=== PATIENT | female | born 1965 | race Caucasian/White ===

== ENCOUNTER 2018-09-20 08:28 | Day surgery (SDC) | payer BC ==
[2018-09-19 09:40] VITALS: BMI 25.0
[~2018-09-20 08:28] MED LIST: LACTATED RINGERS 1,000 ML IV SCH
[2018-09-20 09:22] VITALS: RESP 16; TEMP 97.6
[2018-09-20] MEDS ORDERED: LIDOCAINE 1% 20 ML VIAL (10MG/ML) FOR IV START INTRADERMA ONE (09:31)
[2018-09-20] MEDS ORDERED: PROPOFOL 10 MG/ML 20 ML VIAL IV ONE (09:52)
[2018-09-20] MEDS ORDERED: LIDOCAINE 1% INJ 10MG/ML (20 ML MDV) ONE (09:52)
--- NOTE | 2018-09-20 10:12 | P.PCN ---
Date of Procedure: 09/20/18 Procedure(s) Performed: BRIEF HISTORY: Patient is a 53-year-old pleasant female, scheduled for an elective colonoscopy as a part of screening for colon neoplasia. PROCEDURE PERFORMED: Colonoscopy. PREOPERATIVE DIAGNOSIS: Screening for colon cancer. IV sedation per Anesthesia. PROCEDURE: After informed consent was obtained, the patient, was brought into the endoscopy unit. IV sedation was administered by Anesthesia under continuous monitoring. Digital rectal examination was normal. Initially the Olympus CF-160 flexible video colonoscope was then inserted in the rectum, gradually advanced into the cecum without any difficulty. Careful examination was performed as the scope was gradually being withdrawn. Ileocecal valve and the appendiceal orifice were visualized and appeared normal. Prep was excellent. Mucosa of the cecum, ascending colon, transverse colon, descending colon, sigmoid colon, and rectum appeared normal. Retroflexion was performed in the rectum and no lesions were seen. The patient tolerated the procedure well. IMPRESSION: Normal-appearing colon from rectum to cecum with no evidence of colorectal neoplasia. RECOMMENDATIONS: Findings of this examination were discussed with the patient well as her family. She was advised to have a repeat screening colonoscopy in 10 years.
[2018-09-20 10:48] VITALS: BP 106/60; PULSE 62
== END 2018-09-20 10:50 | disposition home or self-care (01) ==
LOC: ORWHC2ENDO 08:28
PROVIDERS: ATTEND Internal Medicine Gastroenterology
DX: Z12.11 Encounter for screening for malignant neoplasm of colon (principal); F32.9 Major depressive disorder, single episode, unspecified; Z79.1 Long term (current) use of non-steroidal anti-inflammatories (NSAID); Z79.899 Other long term (current) drug therapy; Z88.0 Allergy status to penicillin
CPT/HCPCS: J2001; J2704; G0121

== ENCOUNTER → 2022-04-27 | Outpatient (CLI) | payer OTHER ==
--- NOTE | 2022-04-27 16:42 | XR ---
EXAMINATION TYPE: XR chest 2V DATE OF EXAM: 04/27/2022 4:33 PM COMPARISON: None TECHNIQUE: XR chest 2V Frontal and lateral views of the chest. CLINICAL INDICATION:Female, 56 years old with history of [id number] PRE SURG; FINDINGS: Lungs/Pleura: There is no evidence of pleural effusion, focal consolidation, or pneumothorax. Senesc ent parenchymal change. Pulmonary vascularity: Unremarkable. Heart/mediastinum: Cardiomediastinal silhouette is unremarkable. Musculoskeletal: Multiple level degenerative disc disease changes seen throughout the spine. IMPRESSION: No acute cardiopulmonary disease/process.
[2022-04-27 17:29] LABS: INR 0.9 (<1.2); Partial Thromboplastin Time 23.2 sec (22.0-30.0); Prothrombin Time 9.6 sec (9.0-12.0)
[2022-04-27 18:31] LABS: Basophils % (A) 1 %; Eosinophils # (A) 0.1 k/uL (0-0.7); Eosinophils % (A) 1 %; HCT 40.8 % (34.0-46.0); HGB 13.7 gm/dL (11.4-16.0); Lymphocytes # (A) 0.9 k/uL (1.0-4.8); Lymphocytes % (A) 15 %; MCH 30.7 pg (25.0-35.0); MCHC 33.7 g/dL (31.0-37.0); MCV 91.1 fL (80.0-100.0); Mean Platelet Volume 7.9; Monocytes # (A) 0.3 k/uL (0-1.0); Monocytes % (A) 4 %; Neutrophils # (A) 4.6 k/uL (1.3-7.7); Neutrophils % (A) 75 %; Platelet Count 318 k/uL (150-450); RBC 4.48 m/uL (3.80-5.40); RDW 12.2 % (11.5-15.5); WBC 6.1 k/uL (3.8-10.6)
[2022-04-27 19:12] LABS: Amorphous Sediment,Urine Few /hpf; Appearance,Urine Cloudy (Clear); Bilirubin,Urine Negative (Negative); Blood,Urine Large (Negative); Calcium Oxalate Crystals,Urine Occasional /hpf; Color,Urine Yellow; Glucose,Urine (UA) Negative (Negative); Ketones,Urine Trace (Negative); Leukocyte Esterase,Urine Trace (Negative); Mucus,Urine Few /hpf; Nitrite,Urine Negative (Negative); Protein,Urine 1+ (Negative); RBC,Urine >182 /hpf (0-5); Specific Gravity,Urine 1.034 (1.001-1.035); Squamous Epithelial Cell,Urine 2 /hpf (0-4); WBC,Urine 3 /hpf (0-5)
[2022-04-27 23:22] LABS: African American GFR (CKD) 96.9 (60.0-200.0); Anion Gap 11.3 mmol/L (10.00-18.00); BUN/Creat Ratio 19.38 Ratio (12.00-20.00); Blood Urea Nitrogen 15.5 mg/dL (9.0-27.0); Calcium 9.7 mg/dL (8.7-10.3); Carbon Dioxide 26.7 mmol/L (20.0-27.5); Non-African American GFR(CKD) 83.6 (60.0-200.0); Potassium 4.1 mmol/L (3.5-5.5)
== END | disposition home or self-care (01) ==
LOC: LABPAT 15:38
PROVIDERS: ATTEND Orthopaedic Surgery Orthopaedic Surgery of the Spine
DX: Z01.812 Encounter for preprocedural laboratory examination (principal); M48.00 Spinal stenosis, site unspecified
CPT/HCPCS: 71046; 80048; 81001; 85025; 85610; 85730; 87070; 93005

== ENCOUNTER → 2022-05-14 | Outpatient (CLI) | payer OTHER | END | disposition home or self-care (01) | LOC: LABPAT 14:00 | PROVIDERS: ATTEND Orthopaedic Surgery Orthopaedic Surgery of the Spine | DX: Z53.9 Procedure and treatment not carried out, unspecified reason (principal) ==

== ENCOUNTER 2022-05-17 06:38 | Observation (INO) | payer OTHER ==
[2022-05-14 11:32] VITALS: BMI 24.5
[~2022-05-17 06:38] MED LIST changes: +HYDROmorphone 0.5 MG/0.5 ML SYRINGE IVP PRN; -LACTATED RINGERS 1,000 ML IV SCH; +LIDOCAINE 1% (10MG/ML) FOR IV START INTRADERMA PRN; +ONDANSETRON 4 MG/2 ML VIAL IVP ONE; +ceFAZolin 1,000 MG in SODIUM CHLORIDE 0.9% IRRIGATIO 1,000 ML IRRIGATION PRN
[2022-05-17] MEDS ORDERED: NEOSTIGMINE 1 MG/ML 10 ML VIAL ONE (07:30)
[2022-05-17] MEDS ORDERED: HYDROmorphone (PF) 1 MG/ML ONE (07:30)
[2022-05-17] MEDS ORDERED: ONDANSETRON 4 MG/2 ML VIAL IVP ONE (07:30)
[2022-05-17] MEDS ORDERED: GLYCOPYRROLATE 0.2 MG/ML 2 ML VIAL ONE (07:30)
[2022-05-17] MEDS ORDERED: ePHEDrine 50 MG/ML 1 ML VIAL ONE (07:30)
[2022-05-17] MEDS ORDERED: MIDAZOLAM 2 MG/2 ML VIAL IVP ONE (07:30)
[2022-05-17] MEDS ORDERED: fentaNYL (PF) 50 MCG/ML 2 ML AMP ONE (07:30)
[2022-05-17] MEDS ORDERED: WATER FOR INJECTION, STERILE 10 ML VIAL IV ONE (07:30)
[2022-05-17] MEDS ORDERED: LIDOCAINE 2% INJ 20 MG/ML (2 ML VIAL) ONE (07:30)
[2022-05-17] MEDS ORDERED: LACTATED RINGERS 1,000 ML IV ONE ×5 (07:30→13:51)
[2022-05-17] MEDS ORDERED: SUCCINYLCHOLINE CHLORIDE 200 MG/10 ML VIAL IV ONE (07:30)
[2022-05-17] MEDS ORDERED: MIDAZOLAM 2 MG/2 ML VIAL ONE (07:30)
[2022-05-17] MEDS ORDERED: ROCURONIUM 10 MG/ML (5 ML VIAL) IV ONE (07:30)
[2022-05-17] MEDS ORDERED: KETAMINE 10 MG/ML 20 ML VIAL ONE (07:30)
[2022-05-17] MEDS ORDERED: PROPOFOL 10 MG/ML 20 ML VIAL IV ONE (07:30)
[2022-05-17] MEDS ORDERED: FAMOTIDINE 20 MG/2 ML VIAL IVP ONE (07:30)
[2022-05-17 07:55] LABS: Appearance,Urine Cloudy (Clear); Bilirubin,Urine Negative (Negative); Blood,Urine Negative (Negative); Calcium Oxalate Crystals,Urine Moderate /hpf; Color,Urine Yellow; Glucose,Urine (UA) Negative (Negative); Ketones,Urine Negative (Negative); Leukocyte Esterase,Urine Negative (Negative); Mucus,Urine Rare /hpf; Nitrite,Urine Negative (Negative); Protein,Urine Negative (Negative); RBC,Urine 1 /hpf (0-5); Specific Gravity,Urine 1.028 (1.001-1.035); Squamous Epithelial Cell,Urine <1 /hpf (0-4); Urobilinogen,Urine <2.0 mg/dL (<2.0); WBC,Urine 2 /hpf (0-5)
[2022-05-17] MEDS ORDERED: THROMBIN (BOVINE) 5,000 UNIT VIAL TOPICAL ONE (08:38)
[2022-05-17] MEDS ORDERED: BUPIVACAIN-EPI 0.25%-1:200,000 30 ML VIAL SQ ONE (08:39)
[2022-05-17] MEDS ORDERED: GELATIN SPONGE,ABSORB (LARGE) 1 EACH SPONGE TOPICAL ONE (08:39)
[2022-05-17] MEDS ORDERED: ONDANSETRON 4 MG/2 ML VIAL IVP PRN (11:30)
[2022-05-17] MEDS ORDERED: MAGNESIUM HYDROXIDE 2,400 MG/10 ML CUP PO PRN (11:30)
[2022-05-17] MEDS ORDERED: BENZOCAINE/MENTHOL LOZENG 1 EACH LOZENGE MUCOUS MEM PRN (11:30)
--- NOTE | 2022-05-17 11:39 | P.OP ---
Date of Procedure: 05/17/22 Preoperative Diagnosis: Grade 3 spondylolisthesis L5-S1, spinal stenosis L5-S1, degenerative disc disease, lower extremity radiculopathy, low back pain, facet arthrosis, Postoperative Diagnosis: Grade 3 spondylolisthesis L5-S1, spinal stenosis L5-S1, degenerative disc disease, lower extremity radiculopathy, low back pain, facet arthrosis, Anesthesia: GETA Pathology: none sent Condition: stable Disposition: PACU Description of Procedure: DESCRIPTION OF PROCEDURE(S): BRIEF OPERATIVE NOTE Preoperative Diagnosis: Grade 3 spondylolisthesis L5-S1, spinal stenosis L5-S1, degenerative disc disease, lower extremity radiculopathy, low back pain, facet arthrosis, Postoperative Diagnosis: Grade 3 spondylolisthesis L5-S1, spinal stenosis L5-S1, degenerative disc disease, lower extremity radiculopathy, low back pain, facet arthrosis, Procedure: Laminectomy and decompression L5-S1 Computer CT navigation aided Minimally invasive Posterior lateral decompression and facet and lysis fusion L5-S1 Minimally invasive Transforaminal lumbar interbody fusion for a 360 fusion L5-S1 Discectomy for decompression L5-S1 Placement of interbody graft L5-S1 Use of computer navigation for fusion Local autogenous bone grafting Aspiration of bone marrow from the vertebral body pedicle of L5 on the right Use of bone graft extenders Surgeon: Dr. Lamas Vehicle Window Tinter: Juarez ELI who is present throughout the entire the case persistence during positioning, dissection, exposure, visualization, and all crucial elements of the case as well as closure. Anesthesia: General anesthesia per Dr. Oliveros Estimated blood loss: Approximately 250 mL Complications: None apparent Components implanted: K2M minimally invasive [place] pedicle screw system withscrews measuring 6.5 mm in diameter to rods one Concord interbody cage with 10 mL of osteo amp bio4 bone graft substitute and 30 mL of the BX bone fibers to supplement the local autogenous bone graft and bone marrow aspirate Disposition: To recovery room in good stable condition. OPERATIVE INDICATIONS The patient has had severe issues at their lower extremity in her lower back over the past several years with significant worsening over the past several months. Over the past few months the patient had pain at their back and their lower extremities. The patient is having severe radicular symptoms at their lower extremity with weakness primarily on the left side. The patient is having significant pain in their back. They are unable to obtain any comfort. We did aggressive conservative treatment with medications therapy and interventional pain management however thery were not having any relief. The patient also showed evidence of a listhesis with some dynamic instability with grade 3 lysis instability at L5-S1. The patient has been through conservative treatment. We discussed various treatment options including surgery, and the patient wishes to proceed with surgery We discussed the risk, patient's alternatives and benefits of surgery including but not limited to, risk of bleeding risk of infection, risk of need for further surgery, risk of decreased, loss of motion, muscle function, malunion nonunion, hardware failure, nerve damage, paralysis, heart attack, blindness and . They understood issues with the current pandemic and the possibility of exposure. OPERATIVE SUMMARY After discussing all the risks, patient alternatives and benefits at length, the patient elected to proceed with surgical intervention, signed informed consent, and presented for their procedure. The patient was seen and examined in the preoperative holding area and the surgical site was marked. The patient was given antibiotics and brought to the operating room. The patient was sedated and intubated by anesthesia in standard fashion. The patient was positioned on to the operating room table in a prone position on the appropriate frame which was well-padded and well molded. We were careful to pad any bony prominences and pressure points. We were careful to maintain the patient's cervical spine and good neutral alignment and position throughout. The patient was prepped and draped in a normal standard fashion. An appropriate timeout and keystone protocol performed. We were able to proceed with the surgery. The local wound area was infiltrated with local anesthetic. Over the right iliac crest I was able to make small stab incisions and establish a guidepin screw fixation to the iliac crest 2. I was able place the computer referencing device over the guidepins to establish an appropriate reference point for the Ziem CT navigation. We then were able to place patient in an appropriate drape and do a navigation spin for visualization and 3-D reconstruction of the lumbar spine. I was able utilize C-arm guidance and navigation to establish appropriate position over the pedicles bilaterally at the appropriate levels of L5-S1 . With the appropriate levels confirmed was able to make small incisions over the appropriate pedicle sites bilaterally. Utilizing the computer navigation device I was able to establish bony landmarks at the right iliac crest for a bony reference point for the navigation device. I was able to establish a Jamshidi needle over the lateral aspect of the pedicle and advanced the trocar into the pedicle being careful not to breech superiorly inferiorly medially or laterally using computer navigation device. Position was confirmed regularly with AP and lateral images on C-arm and with the computer navigation device at the appropriate levels bilaterally. I was able to establish the trocar into the pedicle appropriately into the posterior aspect of the vertebral body bilaterally at the appropriate levels at L5-S1. This was done at each of the pedicle positions and each of the vertebrae. At the superior vertebrae of L5 on the right I was able to take approximately 25 mL of bone aspiration for use later in the case to supplement the allograft and autograft bone. I was able place the guidewire into the trocar and into the vertebral body appropriately under C-arm guidance. I had to do a second spin with the Ziehm navigation and then place the screws at L5 in improved position at the pedicles bilaterally with Ziehm and C-arm guidance. Dissection was taken down over the wire to the appropriate starting position for the screw placed. The appropriate length screw was chosen, threaded over the guidewire and screwed appropriately into the pedicle and vertebral body under C-arm guidance in excellent alignment and position with good bony purchase. This is done at each of the screw sites at the appropriate levels at L5 and S1. With the screws intact I extended the incision to connect the screw hole sites on the most symptomatic side on the left. I dissected down to establish access over the pars and lamina to the base of the spinous process. I was able to expose the facet joint. The capsule the facet was taken down and showed some facet arthrosis at the joint. I was able to use a combination of curettes and Kerrison rongeurs and a high-speed drill to take down the facet joint and do a facetectomy. It was a difficult angle given the severity of the listhesis at L5-S1 but I was able gain access to the disc space. I was able get excellent foraminal decompression and central decompression with undermining across midline to perform a laminectomy centrally and contralaterally. As able get good central decompression. The ligamentum flavum was taken down to further decompress centrally and at bilateral neural foramen. I was able to expose the disc space and visualize the traversing nerve root. Note was made of some disc protrusion and disc herniation that was abutting the traversing nerve root at the level causing further compression of the nerve root. I was able to establish a annulotomy at the appropriate level protecting soft tissue and neural structures. Note was made of some disc desiccation at the disc. I performed a complete discectomy with accommodation of curettes and rasps and scrapers. I was able get good endplate preparation at the disc space. I sized for the appropriate size interbody spacer protecting the soft tissue and neural structures. The wound was copiously irrigated and suctioned dry. There is no evidence of any dural tear or leak. I was able to pack the disc space with local autogenous bone graft as well as a small amount of bone graft which was also placed into the interbody cage itself. Protecting the soft tissue structures and neural structures I was able place the interbody cage in good alignment and good position with good fit and fill at the interbody space. Position was confirmed with C-arm guidance. Good hemostasis maintained. There is no evidence of any dural tear or leak. The wound was irrigated and suctioned dry. With the hardware intact, intraoperative C-arm imaging was again taken which showed good alignment and position of the hardware at the appropriate levels. We were then able to measure, contour and place the rods and appropriate hardware bilaterally. I was able to place capcrews, tighten them down, and torque them with the torque screwdriver appropriately. I was able get significant improved position and alignment with reduction of the listhesis at L5-S1. With this intact I was able to place the local autogenous bone graft with additional bone graft enhancer as necessary into the posterior lateral gutters over the decorticated transverse processes and facet joints on the contralateral side. The remainder of the bone graft was placed over the facet joint on the contralateral side after taking down the facet joint capsule. With the bone graft intact, a stable construct, and good decompression at the appropriate levels, we were able to proceed with closure. Good hemostasis was maintained. There is no evidence of dural tear or leak. The fascia was closed for a watertight closure. he subcuticular tissue was closed with absorbable suture. The wound was cleaned and dried and dressed with the appropriate dressing. The drapes were broken down. The patient was gently rolled back onto their hospital bed being careful to maintain their cervical spine and good neutral alignment and position. They were woken up by anesthesia, extubated, and brought to the recovery room in good stable condition. The patient will be admitted to the hospital for appropriate postoperative care, medical management and monitoring. We will continue to follow them closely about the postoperative course.
[2022-05-17] MEDS ORDERED: HYDROmorphone 0.5 MG/0.5 ML SYRINGE IVP ONE (12:11)
--- NOTE | 2022-05-17 12:13 | FL ---
EXAMINATION TYPE: FL guidance operating room DATE OF EXAM: 05/17/2022 HISTORY: Fluoroscopy time 49 seconds of fluoroscopy provided. IMPRESSION: 1. Fluoroscopy time.
[2022-05-17] MEDS: HYDROmorphone 0.5 MG/0.5 ML SYRINGE IVP PRN (12:35)
[2022-05-17] MEDS ORDERED: PROPARACAINE 0.5% OPHTH DROPS 15 ML BTL LEFT EYE STA (13:25)
[2022-05-17] MEDS: HYDROmorphone 1 MG/ML 1 ML SYRINGE IVP PRN ×3 (16:05→23:37)
[2022-05-17] MEDS: LACTATED RINGERS 1,000 ML IV SCH ×2 (16:07→17:25)
[2022-05-17] MEDS: HYDROcodone/APAP 5-325MG 1 EACH TAB PO PRN ×2 (17:16→22:13)
[2022-05-17] MEDS: SODIUM CHLORIDE 0.9% 1,000 ML IV SCH (17:17)
[2022-05-17] MEDS: CYCLOBENZAPRINE 10 MG TAB PO PRN (17:17)
[2022-05-17] MEDS: KETOROLAC 0.5% OPHTH DROPS 5 ML BTL LEFT EYE SCH ×2 (17:26→22:05)
--- NOTE | 2022-05-17 21:54 | CONS ---
CONSULTATION CHIEF COMPLAINT: Pain, left eye. HISTORY OF PRESENT ILLNESS: The patient has pain in the left eye since she came out of surgery. The patient had a lumbar spinal surgery. Complaining of pain, inability to open the eye and dryness. MEDICAL HISTORY: Reviewed. ALLERGIES: The patient is allergic to penicillin. PHYSICAL EXAMINATION: Eye examination vision 20/20 within chart. Extraocular motility full, right eye. No pathology detected. Left eye 1+ lid edema, 1+ conjunctival injection. Cornea shows superficial punctate staining with fluorescein. Intra-ocular pressure was normal digitally, both eyes. Pupils were small in both eyes. Cornea was clear in both eyes ASSESSMENT: 1. Left superficial tiny corneal abrasions (superficial keratitis). 2. Conjunctivitis. 3. Left eye pain. PLAN: I started the patient on Acular 0.5% 1 drop 3 times a day to the left eye. The patient is to call if no improvement within 1 day. REENA / JODY: [id number] /
[2022-05-17] MEDS: NITROFURANTOIN MONOHYD/M-CRYST 100 MG CAP PO SCH (22:05)
--- NOTE | 2022-05-18 00:27 | P.CONS ---
History of Present Illness - Reason for Consult Consult date: 05/17/22 - History of Present Illness The patient is a 56-year-old female with a PMH of hyperlipidemia who was admitted for a scheduled lumbosacral laminectomy and decompression. The patient was seen postoperatively on the surgical unit. She reported ongoing 8 out of 10 lower back pain. She denied any additional complaints. Denies experiencing lower extremity pain, numbness, or tingling. Denied weakness. Denied chest pain, shortness of breath, nausea, vomiting, abdominal pain, diarrhea. Review of systems: Pertinent positives and negatives as discussed in HPI, a complete review of systems was performed and all other systems are negative. Physical examination: General: non toxic, no distress, appears at stated age, normal weight Derm: no unusual rashes/lesions, warm Head: atraumatic, normocephalic, symmetric Eyes: EOMI, no lid lag, anicteric sclera, pupils equal round reactive to light ENT: Nose and ears atraumatic Neck: No cervical lymphadenopathy, trachea midline, supple Mouth: no lip lesion, mucus membranes moist Cardiovascular: S1S2 reg, no murmur, positive dorsalis pedis pulse bilateral, no edema Lungs: CTA bilateral, no rhonchi, no rales, no accessory muscle use Abdominal: soft, nontender to palpation, no guarding Ext: muscle strength 5 out of 5 in all 4 extremities grossly, no gross muscle atrophy, no contractures, Neuro: CN II-XI grossly intact, no gross focal neuro deficits Psych: Alert, oriented, appropriate affect Assessment/plan Chronic conditions: Hyperlipidemia -Continue with home meds Status post lumbosacral laminectomy and decompression -Defer management including pain control and DVT prophylaxis to the primary surgery service We appreciate this opportunity to be involved in this patient's care. We will follow the patient with you. For any further questions, please not hesitate to contact the [facility] inpatient team. Past Medical History Past Medical History: No Reported History Additional Past Medical History / Comment(s): migraines., back pain., sciatica pain., frequent uti's., currently being treated for uti. History of Any Multi-Drug Resistant Organisms: None Reported Past Surgical History: Appendectomy, Breast Surgery, Hysterectomy, Orthopedic Surgery Additional Past Surgical History / Comment(s): PARTIAL HYSTERECTOMY, D & C, BREAST IMPLANTS, FX TIBIA/FIBIA WITH JULIO C AND REMOVAL., COLONOSCOPY Past Anesthesia/Blood Transfusion Reactions: Previous Problems w/ Anesthesia Additional Past Anesthesia/Blood Transfusion Reaction / Comm: SHE WOKE UP AFTER D&C WITH DIFFICULTY BREATHING AND HAD ASPIRATION PNEUMONIA . Past Psychological History: ADD/ADHD, Anxiety Smoking Status: Never smoker Past Alcohol Use History: Rare Past Drug Use History: None Reported - Past Family History Mother Family Medical History: Hyperlipidemia Medications and Allergies Home Medications Medication Instructions Recorded Confirmed Type Escitalopram [Lexapro] 20 mg PO DAILY 09/19/18 05/17/22 History Ibuprofen [Motrin] 800 mg PO TID PRN 09/19/18 05/17/22 History Multivit with Calcium,Iron,Min 2 each PO DAILY 09/19/18 05/17/22 History [Women's Multivitamin] Topiramate [Topamax] 25 mg PO DAILY 09/19/18 05/17/22 History Vitamin C/Biotin [Hair, Skin and 1 tab PO DAILY 09/19/18 05/17/22 History Nails] buPROPion HCL [Wellbutrin XL] 300 mg PO DAILY 09/19/18 05/17/22 History Atorvastatin [Lipitor] 20 mg PO DAILY 05/14/22 05/17/22 History Cholecalciferol (Vitamin D3) 125 mcg PO DAILY 05/14/22 05/17/22 History [Vitamin D3 (125 MCG = 5,000 IU)] Dextroamphetamine/Amphetamine 30 mg PO DAILY 05/14/22 05/17/22 History [Adderall Xr 30 mg Capsule] HYDROcodone/APAP 5-325MG [Corinth 1 tab PO BID PRN 05/14/22 05/17/22 History 5-325] Nitrofurantoin Monohyd/M-Cryst 100 mg PO Q12HR 05/14/22 05/17/22 History [Macrobid] Power C Supplement 1 tab PO DAILY 05/14/22 05/17/22 History Vitafusion Cranberry 1 tab PO DAILY 05/14/22 05/17/22 History Allergies Allergy/AdvReac Type Severity Reaction Status Date / Time Penicillins Allergy Severe Rash/Hives Verified 05/17/22 07:02 Physical Exam Vitals: Vital Signs Temp Pulse Pulse Pulse Resp BP BP 05/17/22 19:20 98 F 67 18 125/72 05/17/22 16:16 97.6 F 70 16 117/71 05/17/22 15:47 97.7 F 65 16 120/71 05/17/22 15:00 82 16 103/62 05/17/22 14:30 68 16 116/55 05/17/22 14:00 69 16 114/59 05/17/22 13:30 71 16 112/59 05/17/22 13:00 72 16 115/59 05/17/22 12:45 66 18 124/71 05/17/22 12:30 68 16 110/65 05/17/22 12:16 74 16 104/48 05/17/22 12:00 73 16 119/55 05/17/22 11:42 97.7 F 63 16 110/56 05/17/22 06:50 97.3 F L 71 17 142/65 Pulse Ox 05/17/22 19:20 93 L 05/17/22 16:16 97 05/17/22 15:47 97 05/17/22 15:00 97 05/17/22 14:30 100 05/17/22 14:00 99 05/17/22 13:30 99 05/17/22 13:00 98 05/17/22 12:45 98 05/17/22 12:30 96 05/17/22 12:16 99 05/17/22 12:00 100 05/17/22 11:42 100 05/17/22 06:50 100 Intake and Output 05/17/22 05/17/22 05/18/22 14:59 22:59 06:59 Intake Total 2050 200 Output Total 370 300 Balance 1680 -100 Intake: IV 0 200 Output: Urine 220 300 Estimated Blood Loss 150 Other: Voiding Method Indwelling Catheter Weight 72.7 kg Results Labs: Abnormal Lab Results - Last 24 Hours (Table) 05/17/22 Range/Units 07:13 Urine Appearance Cloudy H (Clear) Calcium Oxalate Crystal Moderate H (None) /hpf Urine Mucus Rare H (None) /hpf
[2022-05-18] MEDS: SODIUM CHLORIDE 0.9% 1,000 ML IV SCH ×2 (02:00→13:25)
[2022-05-18] MEDS: HYDROcodone/APAP 5-325MG 1 EACH TAB PO PRN (03:01)
[2022-05-18] MEDS: CYCLOBENZAPRINE 10 MG TAB PO PRN ×2 (03:02→20:18)
[2022-05-18] MEDS: buPROPion XL 300 MG TAB.ER.24H PO SCH (08:30)
[2022-05-18] MEDS: NITROFURANTOIN MONOHYD/M-CRYST 100 MG CAP PO SCH ×2 (08:30→20:18)
[2022-05-18] MEDS: MULTIVITAMINS, THERA 1 EACH TAB PO SCH (08:30)
[2022-05-18] MEDS: SENNOSIDES-DOCUSATE SODIUM 1 EACH TAB PO SCH (08:30)
[2022-05-18] MEDS: CHOLECALCIFEROL 125 MCG (5000 IU) TABLET PO SCH (08:30)
[2022-05-18] MEDS: ATORVASTATIN 20 MG TAB PO SCH (08:30)
[2022-05-18] MEDS: TOPIRAMATE 25 MG TAB PO SCH (08:30)
[2022-05-18] MEDS: KETOROLAC 0.5% OPHTH DROPS 5 ML BTL LEFT EYE SCH ×4 (08:31→20:19)
[2022-05-18] MEDS: PATIENT'S OWN (Dextroamphetamine/Amphetamine [Adderall Xr 30 Mg Capsule] 30 MG Cap.Er PO SCH (08:35)
[2022-05-18] MEDS: LACTATED RINGERS 1,000 ML IV SCH (08:35)
[2022-05-18] MEDS: ESCITALOPRAM 20 MG TAB PO SCH (08:36)
--- NOTE | 2022-05-18 08:42 | P.PN ---
Progress Note - Text Progress Note Date: 05/18/22 Orthopedic Spine History of present illness: Patient is a pleasant 56-year-old female who is seen and examined at the bedside following posterior lateral decompression and fusion performed yesterday. Patient states they are doing okay post operatively. Her lower extremity radiculopathy has significantly improved postoperatively. She states she is not currently expressing any lower extremity leg pain. This pain was significant prior to surgical intervention. She is experiencing significant pain in the lumbar spine of the surgical sites. She had significant difficulty with pain control and sleeping last night. Currently does not complain of nausea, vomiting, fever, or chills. Her breakfast was brought to the room this morning. She has not eating her breakfast yet though. Her Trejo catheter was discontinued early this morning. She has not had to use the restroom since that time. She is planning to work with physical therapy today to increase her mobility and ambulation. Physical Exam Lumbar Fusion: Status post surgical day number 1 Patient is awake, alert, and oriented 3 Vital signs stable Good chest excursion with deep inspiration and expiration Abdomen soft nontender Dorsiflexion, plantarflexion, and extensor hallucis longus positive sustained bilaterally No signs or symptoms of DVT; no calf pain; pneumatic cuffs intact bilateral lower extremities Optifoam dressings are clean, dry, and intact over the lumbar spine and right iliac crest; no erythema, purulence, or signs of infection Neurovascularly intact bilaterally lower extremities Assessment: Status post L5-S1 minimally invasive posterior lateral decompression and fusion with transforaminal lumbar interbody fusion Low back pain Lumbosacral spinal stenosis L5-S1 Grade 3 spondylolisthesis Lower extremity radiculopathy, significantly improved postoperatively Lumbosacral facet arthrosis Lumbosacral degenerative disc disease Plan: 1. Ambulate as tolerated; work with Physical Therapy to increase mobilization 2. Continue pain control with IV and oral medications; she has been having difficulty with pain control. We will plan to increase oral hydrocodone to 7.5 mg/25 mg, 1-2 tabs every 4 hours as needed for pain. She may continue a cyclobenzaprine and IV Dilaudid. 3. Dressings to remain intact with Optifoam; patient may shower with dressings intact 4. Medical management can continue to manage patient for patient's other medical diagnoses 5. We will continue to follow the patient closely; depending on the patient's progress, we may plan for discharge home over the next 1-2 days. 6. Patient can follow-up with Juarez Islas PA-C or Dr. Lawrence Lamas at [facility] in 2-3 weeks following discharge
[2022-05-18 08:59] LABS: Basophils # (A) 0.04 X 10*3/uL (0.00-0.10); Basophils % (A) 0.3 %; Eosinophils # (A) 0.01 X 10*3/uL (0.04-0.35); Eosinophils % (A) 0.1 %; HCT 34.8 % (37.2-46.3); HGB 11.5 g/dL (12.0-15.0); Immature Grans, Automated 0.5 %; Lymphocytes # (A) 0.82 X 10*3/uL (0.90-5.00); Lymphocytes % (A) 5.6 %; MCH 30.2 pg (27.0-32.0); MCV 91.3 fL (80.0-97.0); Mean Platelet Volume 9.6 fL (9.5-12.2); Monocytes # (A) 1.43 X 10*3/uL (0.20-1.00); Monocytes % (A) 9.8 %; NRBC Per 100 WBC 0 /100 WBCS (0.0-0.0); Neutrophils # (A) 12.22 X 10*3/uL (1.80-7.70); Neutrophils % (A) 83.7 %; Platelet Count 259 X 10*3/uL (140-440); RBC 3.81 X 10*6/uL (4.10-5.20); RDW 12.3 % (11.5-14.5)
[2022-05-18 09:06] LABS: African American GFR (CKD) 113.8 (60.0-200.0); Anion Gap 8.2 mmol/L (10.00-18.00); BUN/Creat Ratio 14.57 Ratio (12.00-20.00); Blood Urea Nitrogen 10.2 mg/dL (9.0-27.0); Calcium 8.5 mg/dL (8.7-10.3); Carbon Dioxide 25.8 mmol/L (20.0-27.5); Non-African American GFR(CKD) 98.2 (60.0-200.0); Potassium 4.2 mmol/L (3.5-5.5)
[2022-05-18] MEDS: HYDROcodone/APAP 7.5-325MG 1 EACH TAB PO PRN ×2 (09:24→20:18)
--- NOTE | 2022-05-18 13:00 | P.PN ---
Subjective Progress Note Date: 05/18/22 Principal diagnosis: Medical management Subjective: Patient seen and examined at bedside. No acute events overnight. She claims that she worked with physical therapy this morning, and did reasonably well. She still required some assistance getting out of the bed. She claims that she still has lower back pain from surgery. She denies any radicular symptoms. She denies any chest pain, shortness of breath, abdominal pain, diarrhea, constipation, or urinary complaints. She is able to tolerate liquids, has not tried solids yet. Pertinent positives and negatives as discussed above, a complete review of systems was performed and all other systems are negative. Vitals Signs Reviewed. General: nontoxic, no distress, appears at stated age Derm: warm, dry, dressing dry, intact, clean Head: atraumatic, normocephalic, symmetric Eyes: EOMI, no lid lag, anicteric sclera Mouth: no lip lesion, mucus membranes moist Cardiovascular: S1S2 reg, no murmur Lungs: CTA bilateral, no rhonchi, no rales , no accessory muscle use Abdominal: soft, nontender to palpation, no guarding, no appreciable organomegaly Ext: no gross muscle atrophy, no edema, no contractures Neuro: CN II-XI grossly intact, no focal neuro deficits Psych: Alert, oriented, appropriate affect Assessment and Plan: Status post lumbosacral laminectomy and decompression -Pain control, DVT prophylaxis per surgery -PT/OT Leukocytosis, likely reactive -Monitor for signs of infection Chronic medical problems: Dyslipidemia Mood disorder -Continue home medications Thank you for allowing us to participate in the care of this pleasant patient. Do not hesitate to contact us with questions. Someone can be reached from the [facility] hospitalist group all hours of the day at [phone] or via perfect serve. Objective - Vital Signs Vital signs: Vital Signs Temp 98.0 F 05/18/22 07:17 Pulse 79 05/18/22 07:17 Resp 17 05/18/22 07:17 BP 99/64 05/18/22 07:17 Pulse Ox 93 L 05/18/22 07:17 FiO2 Intake & Output 05/17/22 05/18/22 05/18/22 18:59 06:59 18:59 Intake Total 2250 1140 Output Total 670 825 Balance 1580 315 Weight 72.7 kg Intake: IV 2250 Intake, IV Titration 900 Amount Sodium Chloride 0.9% 1, 900 000 ml @ 75 mls/hr IV . [id number] [facility] Rx#:[id number] Oral 240 Output: Urine 520 825 Uretheral (Trejo) 100 Estimated Blood Loss 150 Other: Voiding Method Indwelling Catheter # Voids 1 - Labs CBC & Chem 7: 05/18/22 04:36 05/18/22 04:36 Labs: Abnormal Lab Results - Last 24 Hours (Table) 05/18/22 05/18/22 Range/Units 04:36 04:36 WBC 14.60 H (4.50-10.00) X 10*3/uL RBC 3.81 L (4.10-5.20) X 10*6/uL Hgb 11.5 L (12.0-15.0) g/dL Hct 34.8 L (37.2-46.3) % Immature Gran # 0.08 H (0.00-0.04) X 10*3/uL Neutrophils # 12.22 H (1.80-7.70) X 10*3/uL Lymphocytes # 0.82 L (0.90-5.00) X 10*3/uL Monocytes # 1.43 H (0.20-1.00) X 10*3/uL Eosinophils # 0.01 L (0.04-0.35) X 10*3/uL Anion Gap 8.20 L (10.00-18.00) mmol/L Glucose 122 H (70-110) mg/dL Calcium 8.5 L (8.7-10.3) mg/dL
[2022-05-18] MEDS: HYDROmorphone 0.5 MG/0.5 ML SYRINGE IVP PRN ×2 (15:02→18:38)
[2022-05-19] MEDS: HYDROcodone/APAP 7.5-325MG 1 EACH TAB PO PRN ×3 (01:02→13:32)
[2022-05-19] MEDS: SODIUM CHLORIDE 0.9% 1,000 ML IV SCH (04:41)
[2022-05-19] MEDS: LACTATED RINGERS 1,000 ML IV SCH (06:07)
[2022-05-19 07:49] VITALS: BP 113/73; PULSE 75; RESP 17; TEMP 98.3
[2022-05-19] MEDS: NITROFURANTOIN MONOHYD/M-CRYST 100 MG CAP PO SCH (08:09)
[2022-05-19] MEDS: ATORVASTATIN 20 MG TAB PO SCH (08:09)
[2022-05-19] MEDS: MULTIVITAMINS, THERA 1 EACH TAB PO SCH (08:10)
[2022-05-19] MEDS: TOPIRAMATE 25 MG TAB PO SCH (08:10)
[2022-05-19] MEDS: SENNOSIDES-DOCUSATE SODIUM 1 EACH TAB PO SCH (08:10)
[2022-05-19] MEDS: ESCITALOPRAM 20 MG TAB PO SCH (08:10)
[2022-05-19] MEDS: CHOLECALCIFEROL 125 MCG (5000 IU) TABLET PO SCH (08:10)
[2022-05-19] MEDS: buPROPion XL 300 MG TAB.ER.24H PO SCH (08:10)
[2022-05-19] MEDS: KETOROLAC 0.5% OPHTH DROPS 5 ML BTL LEFT EYE SCH ×2 (08:11→13:28)
[2022-05-19] MEDS: PATIENT'S OWN (Dextroamphetamine/Amphetamine [Adderall Xr 30 Mg Capsule] 30 MG Cap.Er PO SCH (10:02)
--- NOTE | 2022-05-19 11:44 | P.DS ---
Providers Date of admission: 05/18/22 07:40 Expected date of discharge: 05/19/22 Attending physician: Antonio Lamas Consults: 05/17/22 11:30 Consult Physician Routine Consulting Provider: Elke Tang Consult Reason/Comments: Medical management Do you want consulting provider notified?: Yes 05/17/22 13:22 Consult Physician Urgent Consulting Provider: Tevin Ragsdale Consult Reason/Comments: corneal abrasion Do you want consulting provider notified?: Already Contacted Primary care physician: Anthony Esposito - Discharge Diagnosis(es) (1) Spondylolisthesis, lumbosacral region Status: Acute (2) Lumbosacral stenosis Status: Acute (3) Facet arthropathy, lumbosacral Status: Acute (4) DDD (degenerative disc disease), lumbosacral Status: Acute (5) Radiculopathy with lower extremity symptoms Status: Acute (6) Low back pain Status: Acute (7) Lumbar paraspinal muscle spasm Status: Acute (8) Status post lumbar spinal arthrodesis Status: Acute Hospital Course: This is a pleasant 56-year-old female who presented with L5-S1 grade III spondylolisthesis, lumbosacral spinal stenosis, low back pain, or extremity radiculopathy, lumbosacral facet arthrosis, and lumbosacral degenerative disc disease who failed outpatient conservative therapy. She was admitted for an L5- S1 minimally invasive posterior lateral decompression and fusion with transforaminal lumbar interbody fusion. The patient tolerated the procedure well and did well postoperatively. Her lower extremity radiculopathy has had significant improvement postoperatively. She does have some pain at the surgical sites her lumbar spine that has been able to be controlled with oral medications. She has a little improved as compared to yesterday. She has been able to transfer to the restroom. She does feel she is ready for discharge today. Condition on day of discharge stable. Patient will be discharged home. Patient was cleared preoperatively for surgery by Dr. Esposito. Patient currently denies any nausea, vomiting, fever, or chills. Patient is eating and voiding freely without difficulty. Patient may shower Optifoam dressing intact. Patient may remove Optifoam dressing in 3 days and shower without a dressing at that time. Patient should refrain from driving until at least after their first follow-up appointment in the office. Patient should avoid excessive bending, lifting, and twisting; no lifting greater than 10 pounds. MAPS has been reviewed today, 05/19/2022, with an Overall Overdose Risk Score of . An "Opiod Start Talking" Form has been signed and placed in the patient's chart. A prescription has been written for hydrocodone 7.5 mg/325 mg, take 1-2 tabs every 4 hours as needed for pain, dispensed #84. She is given a prescription for cyclobenzaprine 10 mg, take 1 tab 3 times a day as needed for muscle spasm, dispensed #60. Patient is also given a prescription for Senokot-S, take 1 tab twice a day as needed for constipation, dispensed #60. Patient should avoid anti-inflammatory medication over the next 6 weeks postoperatively. Patient should discontinue other previously prescribed hydrocodone 5 mg/325 mg while taking hydrocodone 7.5 mg/325 mg. Patient may follow-up with Juarez Islas PA-C or Dr. Lwarence Lamas at [facility] following discharge. Patient has a scheduled appointment for 05/31/2022. Physical Exam on day of discharge: Patient is awake, alert, and oriented 3 Vital signs stable Good chest excursion with deep inspiration and expiration No signs or symptoms of DVT; no calf pain Extensor hallucis longus, plantarflexion, and dorsiflexion positive sustained bilateral lower extremities Incision is clean, dry, and intact; no erythema, purulence, or signs of infection Optifoam dressing intact I was able to see the patient and she has been making good progress since her surgery. She is happy with her legs are feeling and they have improved with her decompression. She should be able to be discharged home today with close follow-up as outpatient. Procedures: L5-S1 minimally invasive posterior lateral decompression and fusion with transforaminal lumbar interbody fusion Patient Condition at Discharge: Stable Plan - Discharge Summary Discharge Rx Participant: No New Discharge Prescriptions: New Cyclobenzaprine [Flexeril] 10 mg PO TID PRN #60 tab PRN Reason: Muscle Spasm HYDROcodone/APAP 7.5-325MG [[place] 7.5-325] 1 - 2 each PO Q4HR PRN #84 tab PRN Reason: Pain Sennosides-Docusate Sodium [Senokot-S] 1 tab PO BID PRN #60 tablet PRN Reason: Constipation Continue Escitalopram [Lexapro] 20 mg PO DAILY buPROPion HCL [Wellbutrin XL] 300 mg PO DAILY Topiramate [Topamax] 25 mg PO DAILY Vitamin C/Biotin [Hair, Skin and Nails Chew] 1 tab PO DAILY Multivit with Calcium,Iron,Min [Women's Multivitamin] 2 each PO DAILY Cholecalciferol (Vitamin D3) [Vitamin D3 (125 MCG = 5,000 IU)] 125 mcg PO DAILY Atorvastatin [Lipitor] 20 mg PO DAILY Dextroamphetamine/Amphetamine [Adderall Xr 30 mg Capsule] 30 mg PO DAILY Discontinued Nitrofurantoin Monohyd/M-Cryst [Macrobid] 100 mg PO Q12HR No Action Ibuprofen [Motrin] 800 mg PO TID PRN PRN Reason: Pain Vitafusion Cranberry 1 tab PO DAILY HYDROcodone/APAP 5-325MG [[place] 5-325] 1 tab PO BID PRN PRN Reason: Pain Power C Supplement 1 tab PO DAILY Discharge Medication List Escitalopram [Lexapro] 20 mg PO DAILY 09/19/18 [History] Ibuprofen [Motrin] 800 mg PO TID PRN 09/19/18 [History] Multivit with Calcium,Iron,Min [Women's Multivitamin] 2 each PO DAILY 09/19/18 [History] Topiramate [Topamax] 25 mg PO DAILY 09/19/18 [History] Vitamin C/Biotin [Hair, Skin and Nails Chew] 1 tab PO DAILY 09/19/18 [History] buPROPion HCL [Wellbutrin XL] 300 mg PO DAILY 09/19/18 [History] Atorvastatin [Lipitor] 20 mg PO DAILY 05/14/22 [History] Cholecalciferol (Vitamin D3) [Vitamin D3 (125 MCG = 5,000 IU)] 125 mcg PO DAILY 05/14/22 [History] Dextroamphetamine/Amphetamine [Adderall Xr 30 mg Capsule] 30 mg PO DAILY 05/14/22 [History] HYDROcodone/APAP 5-325MG [[place] 5-325] 1 tab PO BID PRN 05/14/22 [History] Power C Supplement 1 tab PO DAILY 05/14/22 [History] Vitafusion Cranberry 1 tab PO DAILY 05/14/22 [History] Cyclobenzaprine [Flexeril] 10 mg PO TID PRN #60 tab 05/19/22 [Rx] HYDROcodone/APAP 7.5-325MG [[place] 7.5-325] 1 - 2 each PO Q4HR PRN #84 tab 05/19/22 [Rx] Sennosides-Docusate Sodium [Senokot-S] 1 tab PO BID PRN #60 tablet 05/19/22 [Rx] Follow up Appointment(s)/Referral(s): Anthony Esposito MD [Primary Care Provider] - 1 Week (office not answering Please call to schedule appointment ) Juarez Islas PAC [PHYSICIAN ANTENNA SPECIALIST] - 05/31/22 1:05 pm (Patient may follow-up with Juarez Islas PA-C or Dr. Lawrence Lamas at [facility] in 2-3 weeks following discharge. ) Patient Instructions/Handouts: Hydrocodone/Acetaminophen (By mouth), Cyclobenzaprine (By mouth), Senna (By mouth), Posterior Lumbar Interbody Fusion (DC) Activity/Diet/Wound Care/Special Instructions: 1. Patient may shower with Optifoam dressing intact. 2. Patient may remove Optifoam dressing in 3 days and shower without a dressing at that time. 3. Patient should refrain from driving until at least after their first follow- up appointment in the office. 4. Patient should avoid excessive bending, twisting, lifting; avoid overhead lifting; no lifting greater than 10 pounds 5. Take medications as prescribed 6. Patient should avoid anti-inflammatory medications over the next 6 weeks postoperatively 7. Do not soak in tub Please see your PCP to see if you still need macrobid. Discharge Disposition: HOME SELF-CARE
--- NOTE | 2022-05-19 12:21 | P.PN ---
Subjective Progress Note Date: 05/19/22 Principal diagnosis: Medical management Subjective: Patient seen and examined at bedside. No acute events overnight. She claims that she still has lower back pain from surgery but improved. She denies any chest pain, shortness of breath, abdominal pain, diarrhea, constipation, or urinary complaints. Pertinent positives and negatives as discussed above, a complete review of systems was performed and all other systems are negative. Vitals Signs Reviewed. General: nontoxic, no distress, appears at stated age Derm: warm, dry, dressing dry, intact, clean Head: atraumatic, normocephalic, symmetric Eyes: EOMI, no lid lag, anicteric sclera Mouth: no lip lesion, mucus membranes moist Cardiovascular: S1S2 reg, no murmur Lungs: CTA bilateral, no rhonchi, no rales , no accessory muscle use Abdominal: soft, nontender to palpation, no guarding, no appreciable organomegaly Ext: no gross muscle atrophy, no edema, no contractures Neuro: CN II-XI grossly intact, no focal neuro deficits Psych: Alert, oriented, appropriate affect Assessment and Plan: Status post lumbosacral laminectomy and decompression -Pain control, DVT prophylaxis per surgery -PT/OT Leukocytosis, likely reactive -Monitor for signs of infection Chronic medical problems: Dyslipidemia Mood disorder -Continue home medications Unclear why patient is on Macrobid. If using for recurrent cystitis, should be on a once a day dose. If using for acute cystitis, 5 days of Macrobid should be enough. We'll discontinue for now. Patient will address this further with her primary care physician. Thank you for allowing us to participate in the care of this pleasant patient. Do not hesitate to contact us with questions. Someone can be reached from the [facility] hospitalist group all hours of the day at [phone] or via [employer]. Objective - Vital Signs Vital signs: Vital Signs Temp 98.3 F 05/19/22 07:24 Pulse 75 05/19/22 07:24 Resp 17 05/19/22 07:24 BP 113/73 05/19/22 07:24 Pulse Ox 97 05/19/22 07:24 FiO2 Intake & Output 05/18/22 05/19/22 05/19/22 18:59 06:59 18:59 Intake Total 1080 480 Balance 1080 480 Intake: Oral 1080 480 Other: # Voids 3 1 - Labs CBC & Chem 7: 05/18/22 04:36 05/18/22 04:36
== END 2022-05-19 14:04 | disposition home or self-care (01) ==
LOC: OR 06:38 → 4SSUR 13:36 → OR 05-18 07:40
PROVIDERS: ADMIT Orthopaedic Surgery Orthopaedic Surgery of the Spine; ATTEND Orthopaedic Surgery Orthopaedic Surgery of the Spine
DX: M43.17 Spondylolisthesis, lumbosacral region (principal); M48.07 Spinal stenosis, lumbosacral region; M51.17 Intervertebral disc disorders with radiculopathy, lumbosacral region; S05.02XA Injury of conjunctiva and corneal abrasion without foreign body, left eye, initial encounter; M47.27 Other spondylosis with radiculopathy, lumbosacral region; H10.9 Unspecified conjunctivitis; H57.12 Ocular pain, left eye; F41.9 Anxiety disorder, unspecified; Z90.49 Acquired absence of other specified parts of digestive tract; Z98.890 Other specified postprocedural states; E78.5 Hyperlipidemia, unspecified; F90.9 Attention-deficit hyperactivity disorder, unspecified type; M81.0 Age-related osteoporosis without current pathological fracture; Z85.828 Personal history of other malignant neoplasm of skin; Z86.19 Personal history of other infectious and parasitic diseases; Z87.440 Personal history of urinary (tract) infections; Z83.3 Family history of diabetes mellitus; Z83.49 Family history of other endocrine, nutritional and metabolic diseases; Z82.49 Family history of ischemic heart disease and other diseases of the circulatory system; Z82.69 Family history of other diseases of the musculoskeletal system and connective tissue; Z79.1 Long term (current) use of non-steroidal anti-inflammatories (NSAID); Z79.891 Long term (current) use of opiate analgesic; Z79.899 Other long term (current) drug therapy; Z88.0 Allergy status to penicillin; Z90.710 Acquired absence of both cervix and uterus; D72.829 Elevated white blood cell count, unspecified; F39 Unspecified mood [affective] disorder
CPT/HCPCS: 97116; 97161; 86900 ×2; 86901 ×2; 80048; 85025; 86850; 81001; 72100; 22630; 20938; G0378 ×2; C1713 ×2; C1762; J2250; J0330; J2710; J0690; J2405; J3010; J1170 ×3; J2704; J2001